=== PATIENT | female | born 1990 | race Two or more races ===

== ENCOUNTER 2021-03-02 21:56 | Emergency (ER) | payer OTHER ==
[~2021-03-02] VITALS: Ht 157.5 cm; Wt 118.0 kg
[2021-03-02 22:47] VITALS: BP 119/68
[2021-03-02] MEDS ORDERED: HYDROCODONE/ACETAMINOPHEN 5-325 MG TABLET PO ONE (23:15)
== END 2021-03-02 23:50 | disposition home or self-care (01) ==
LOC: EMS 21:56
DX: K08.89 Other specified disorders of teeth and supporting structures (principal); F17.210 Nicotine dependence, cigarettes, uncomplicated
CPT/HCPCS: 99283

== ENCOUNTER 2023-09-26 20:20 | Emergency (ER) | payer OTHER ==
[~2023-09-26] VITALS: Ht 157.5 cm; Wt 115.0 kg
[2023-09-26 20:27] VITALS: BP 105/77; PULSE 122; RESP 18; TEMP 98.6
== END 2023-09-26 20:51 | disposition left against medical advice (07) ==
LOC: EMS 20:20
DX: R50.9 Fever, unspecified (principal); Z53.21 Procedure and treatment not carried out due to patient leaving prior to being seen by health care provider

== ENCOUNTER 2024-12-10 17:03 | Emergency (ER) | payer OTHER ==
[~2024-12-10] VITALS: Ht 157.5 cm; Wt 115.0 kg
[2024-12-10 17:39] LABS: PLATELET COUNT (AUTO) 412 K/uL (150-450); RED BLOOD CELL COUNT(AUTO) 5.18 MIL/uL (4.00-5.20); RED CELL DISTRIBUTION WIDTH 13.3 % (11.5-14.5); WHITE BLOOD COUNT (AUTO) 13.3 K/uL (4.5-11.0)
[2024-12-10] MEDS: SODIUM CHLORIDE 0.9% 1,000 ML IV ONE (17:44)
[2024-12-10 17:51] LABS: CALCIUM, TOTAL 9.3 mg/dL (8.8-10.5); CREATININE 0.81 mg/dL (0.60-1.30); GLOMERULAR FILTR. RATE CALC > 60 mL/min (>60); GLUCOSE,RANDOM 103 mg/dL (70-110); SODIUM SERUM 139 mmol/L (136-145); UREA NITROGEN, BLOOD 14 mg/dL (7-18)
[2024-12-10 21:06] LABS: PH,URINE DRUG SCREEN 6.5 (5.0-8.0)
[2024-12-10 21:13] LABS: AMPHET/METH SCREEN,URINE POSITIVE (NEGATIVE); BARBITURATE SCREEN, URINE NEGATIVE (NEGATIVE); CANNABINOID SCREEN,URINE NEGATIVE (NEGATIVE); COCAINE SCREEN,URINE NEGATIVE (NEGATIVE); METHADONE SCREEN, URINE NEGATIVE (NEGATIVE)
[2024-12-10 21:21] LABS: ALCOHOL, URINE DRUG SCREEN NEGATIVE (NEGATIVE)
[2024-12-10 22:18] VITALS: BP 127/67; PULSE 90; RESP 20; TEMP 98.3; O2SAT 98
== END 2024-12-10 23:03 | disposition home or self-care (01) ==
LOC: EMS 17:03
DX: F10.20 Alcohol dependence, uncomplicated (principal); F15.10 Other stimulant abuse, uncomplicated; F41.9 Anxiety disorder, unspecified; F17.210 Nicotine dependence, cigarettes, uncomplicated; Z98.51 Tubal ligation status; Y90.9 Presence of alcohol in blood, level not specified
CPT/HCPCS: 99283; 96360; 96361; 80048; 84703; 85025; 36415; 80307; G0480; J7030